=== PATIENT | female | born 1985 | race African-American/Black ===

== ENCOUNTER 2018-10-09 17:53 | Inpatient (IN) | payer OTHER ==
[2018-10-09] MEDS ORDERED: NACL 0.9% 3 ML SYG IV (19:30)
[2018-10-09] MEDS ORDERED: ACETAMINOPHEN 325 MG TAB PO (19:30)
[2018-10-09 19:50] LABS: ADD MAN DIFF? NO
[2018-10-09 19:52] LABS: BASOPHILS % 0.3 % (0.0-2.0); EOSINOPHILS # 0.1 10^3/ul (0.0-0.5); EOSINOPHILS % 0.8 % (0.0-7.0); HEMATOCRIT 38.1 % (37.0-47.0); HEMOGLOBIN 12.1 g/dl (12.0-16.0); LYMPHOCYTES # 2.3 10^3/ul (0.8-2.9); LYMPHOCYTES % 25.3 % (15.0-51.0); MEAN CORPUSCULAR HEMOGLOBIN 27.7 pg (29.0-33.0); MEAN CORPUSCULAR HGB CONC 31.8 g/dl (32.0-37.0); MEAN CORPUSCULAR VOLUME 87.2 fl (82.0-101.0); MEAN PLATELET VOLUME 10.2 fl (7.4-10.4); MONOCYTE # 0.6 10^3/ul (0.3-0.9); MONOCYTES % 6.3 % (0.0-11.0); PLATELET COUNT 190 10^3/UL (140-415); RED BLOOD COUNT 4.37 10^6/ul (4.20-5.40); RED CELL DISTRIBUTION WIDTH 13.3 % (11.5-14.5)
[2018-10-09 19:52] LABS: WHITE BLOOD COUNT 8.9 10^3/ul (4.8-10.8)
[2018-10-09 20:00] LABS: HEMOGLOBIN A1C 5.3 % (0-5.9)
[2018-10-09 20:09] LABS: INR 1.01; PROTIME 13.4 Sec (11.9-14.9)
[2018-10-09 20:10] LABS: ALBUMIN 3.9 g/dl (3.3-4.9); ALBUMIN/GLOBULIN RATIO 1.25; ALKALINE PHOSPHATASE 46 IU/L (42-121); ANION GAP 8 (5-13); ASPARTATE AMINO TRANSFERASE 14 IU/L (15-46); BILIRUBIN,INDIRECT 0.1 mg/dl (0-1.1); BILIRUBIN,TOTAL 0.1 mg/dl (0.2-1.3); BLOOD UREA NITROGEN 8 mg/dl (7-20); CALCIUM 9.3 mg/dl (8.4-10.2); CARBON DIOXIDE 23 mmol/L (21-31); CHLORIDE 107 mmol/L (97-110); CREATININE 1.07 mg/dl (0.44-1.00); Estimated GFR > 60 mL/min (>60); GLUCOSE 143 mg/dl (70-220); POTASSIUM 3.8 mmol/L (3.5-5.1); SODIUM 138 mmol/L (135-144)
[2018-10-09 20:11] LABS: PARTIAL THROMBOPLASTIN TIME 25.8 Sec (23.0-35.0)
[2018-10-09 20:12] LABS: ALANINE AMINOTRANSFERASE < 6 IU/L (13-69)
[2018-10-09] MEDS: PIPER-TAZO 3.375 GM IV (PMX) 100 ML IVPB (20:42)
[2018-10-09 21:03] LABS: THYROID STIMULATING HORMONE 0.739 MIU/L (0.465-4.680)
[2018-10-10] MEDS: PIPER-TAZO 3.375 GM IV (PMX) 100 ML IVPB ×4 (00:59→17:53)
[2018-10-10] MEDS: IBUPROFEN 600 MG TAB PO (09:11)
[2018-10-10] MEDS: ENOXAPARIN 40 MG/0.4 ML SYG SC (09:12)
[2018-10-10] MEDS: traMADol 50 MG TAB PO (14:26)
[2018-10-11] MEDS: PIPER-TAZO 3.375 GM IV (PMX) 100 ML IVPB ×4 (00:33→18:32)
[2018-10-11 07:09] LABS: ANION GAP 11 (5-13); BLOOD UREA NITROGEN 11 mg/dl (7-20); CALCIUM 8.9 mg/dl (8.4-10.2); CARBON DIOXIDE 23 mmol/L (21-31); CHLORIDE 105 mmol/L (97-110); Estimated GFR > 60 mL/min (>60); GLUCOSE 101 mg/dl (70-220); POTASSIUM 4.2 mmol/L (3.5-5.1); SODIUM 139 mmol/L (135-144)
[2018-10-11] MEDS: traMADol 50 MG TAB PO (09:16)
[2018-10-11] MEDS: ENOXAPARIN 40 MG/0.4 ML SYG SC (09:18)
[2018-10-11] MEDS: HYDROCODONE/APAP (5/325) TAB PO ×3 (12:32→22:35)
[2018-10-11] MEDS: ONDANSETRON 4 MG INJ IV (20:57)
[2018-10-12] MEDS: PIPER-TAZO 3.375 GM IV (PMX) 100 ML IVPB ×4 (00:05→20:24)
[2018-10-12] MEDS: ENOXAPARIN 40 MG/0.4 ML SYG SC (07:48)
[2018-10-12] MEDS: morphine 2 MG INJ IV ×2 (12:39→20:24)
[2018-10-12] MEDS ORDERED: LIDOCAINE 2% (SDV) 5 ML INJ (17:17)
[2018-10-12] MEDS ORDERED: PROPOFOL 0 ML (17:17)
[2018-10-12] MEDS ORDERED: PROPOFOL 100 ML (17:18)
[2018-10-12] MEDS ORDERED: DEXAMETHASONE 4 MG/ML 5 ML INJ (17:42)
[2018-10-12] MEDS ORDERED: ONDANSETRON 4 MG INJ (17:43)
[2018-10-12] MEDS: BUPIVACAINE 0.25% (MPF) 30 ML INJ (17:46)
[2018-10-12] MEDS: LIDOCAINE 1% (MPF) 30 ML INJ (17:46)
[2018-10-12] MEDS: POLYMYXIN/BACITRACIN 1L IRRIG (17:49)
[2018-10-12] MEDS ORDERED: MEPERIDINE 25 MG INJ IV (18:30)
[2018-10-12] MEDS ORDERED: DIPHENHYDRAMINE 50 MG INJ IV (18:30)
[2018-10-12] MEDS ORDERED: OXYCODONE/ACETAMINOPHEN (5/325) TAB PO ×2 (18:30)
[2018-10-12] MEDS ORDERED: MIDAZOLAM 1 MG/ML 2 ML INJ IV (18:30)
[2018-10-12] MEDS ORDERED: hydrALAzine 20 MG INJ IV (18:30)
[2018-10-12] MEDS ORDERED: ALBUTEROL 0.083% (NEB) 2.5 MG/3 ML AMP HHN (18:30)
[2018-10-12] MEDS ORDERED: HYDROmorphONE 1 MG/5 ML IV SYRINGE IV (18:30)
[2018-10-12] MEDS ORDERED: LABETALOL HCL 20MG INJ IV (18:30)
[2018-10-12] MEDS ORDERED: EPHEDrine SULFATE 50 MG/5 ML SYG IV (18:30)
[2018-10-12] MEDS ORDERED: METOCLOPRAMIDE 10 MG INJ IV (18:30)
[2018-10-12] MEDS ORDERED: FENTAnyl 50 MCG/ML VIAL IV ×3 (18:30)
[2018-10-12] MEDS: ONDANSETRON 4 MG INJ IV ×2 (18:44→22:30)
[2018-10-12] MEDS: HYDROmorphONE 1 MG/5 ML IV SYRINGE IV ×2 (18:44→19:00)
[2018-10-12] MEDS: HYDROmorphONE 1 MG/ML SYG IV (23:18)
[2018-10-13] MEDS: PIPER-TAZO 3.375 GM IV (PMX) 100 ML IVPB ×4 (00:11→17:13)
[2018-10-13] MEDS: HYDROmorphONE 1 MG/ML SYG IV ×5 (03:35→20:42)
[2018-10-13 05:22] LABS: ADD MAN DIFF? NO
[2018-10-13 05:35] LABS: BASOPHILS % 0.2 % (0.0-2.0); HEMATOCRIT 40.6 % (37.0-47.0); HEMOGLOBIN 13.1 g/dl (12.0-16.0); LYMPHOCYTES # 0.8 10^3/ul (0.8-2.9); LYMPHOCYTES % 8.1 % (15.0-51.0); MEAN CORPUSCULAR HEMOGLOBIN 27.9 pg (29.0-33.0); MEAN CORPUSCULAR HGB CONC 32.3 g/dl (32.0-37.0); MEAN CORPUSCULAR VOLUME 86.4 fl (82.0-101.0); MEAN PLATELET VOLUME 10.4 fl (7.4-10.4); MONOCYTE # 0.2 10^3/ul (0.3-0.9); MONOCYTES % 2.2 % (0.0-11.0); NEUTROPHIL # 8.3 10^3/ul (1.6-7.5); NEUTROPHILS % 89.2 % (39.0-77.0); PLATELET COUNT 228 10^3/UL (140-415)
[2018-10-13 05:35] LABS: WHITE BLOOD COUNT 9.3 10^3/ul (4.8-10.8)
[2018-10-13 06:11] LABS: PHOSPHORUS 3.3 mg/dl (2.5-4.9)
[2018-10-13 06:14] LABS: ANION GAP 9 (5-13); BLOOD UREA NITROGEN 9 mg/dl (7-20); CALCIUM 9.7 mg/dl (8.4-10.2); CARBON DIOXIDE 25 mmol/L (21-31); CHLORIDE 107 mmol/L (97-110); CREATININE 0.86 mg/dl (0.44-1.00); Estimated GFR > 60 mL/min (>60); GLUCOSE 169 mg/dl (70-220); POTASSIUM 4.2 mmol/L (3.5-5.1); SODIUM 141 mmol/L (135-144)
[2018-10-13] MEDS: ONDANSETRON 4 MG INJ IV ×2 (07:44→11:49)
[2018-10-13] MEDS: ENOXAPARIN 40 MG/0.4 ML SYG SC (08:42)
[2018-10-13] MEDS: IBUPROFEN 600 MG TAB PO (14:59)
[2018-10-13] MEDS ORDERED: TRIMETHOBENZAMIDE 100 MG/ML VIAL IM (15:30)
[2018-10-13] MEDS: ONDANSETRON INJ 8 MG in SOD CHLORIDE 0.9% 50 ML IV ×2 (16:11→20:42)
[2018-10-13] MEDS ORDERED: HYDROmorphONE 1 MG/ML SYG IV (17:30)
[2018-10-13] MEDS ORDERED: ONDANSETRON 4 MG INJ IV (18:00)
[2018-10-14] MEDS: PIPER-TAZO 3.375 GM IV (PMX) 100 ML IVPB ×5 (00:10→23:29)
[2018-10-14 05:56] LABS: ADD MAN DIFF? NO
[2018-10-14 06:09] LABS: BASOPHILS % 0.3 % (0.0-2.0); EOSINOPHILS % 0.2 % (0.0-7.0); HEMATOCRIT 38.4 % (37.0-47.0); HEMOGLOBIN 12.3 g/dl (12.0-16.0); LYMPHOCYTES % 23.2 % (15.0-51.0); MEAN CORPUSCULAR HEMOGLOBIN 28.2 pg (29.0-33.0); MEAN CORPUSCULAR VOLUME 88.1 fl (82.0-101.0); MEAN PLATELET VOLUME 10.4 fl (7.4-10.4); MONOCYTE # 0.5 10^3/ul (0.3-0.9); MONOCYTES % 4.2 % (0.0-11.0); NEUTROPHIL # 9.2 10^3/ul (1.6-7.5); NEUTROPHILS % 71.8 % (39.0-77.0); PLATELET COUNT 206 10^3/UL (140-415); RED BLOOD COUNT 4.36 10^6/ul (4.20-5.40); RED CELL DISTRIBUTION WIDTH 13.1 % (11.5-14.5)
[2018-10-14 06:09] LABS: WHITE BLOOD COUNT 12.8 10^3/ul (4.8-10.8)
[2018-10-14 06:44] LABS: PHOSPHORUS 4.1 mg/dl (2.5-4.9)
[2018-10-14 06:50] LABS: ANION GAP 8 (5-13); BLOOD UREA NITROGEN 9 mg/dl (7-20); CALCIUM 9.1 mg/dl (8.4-10.2); CARBON DIOXIDE 25 mmol/L (21-31); CHLORIDE 107 mmol/L (97-110); CREATININE 0.94 mg/dl (0.44-1.00); Estimated GFR > 60 mL/min (>60); GLUCOSE 103 mg/dl (70-220); POTASSIUM 4.1 mmol/L (3.5-5.1); SODIUM 140 mmol/L (135-144)
[2018-10-14] MEDS: ONDANSETRON INJ 8 MG in SOD CHLORIDE 0.9% 50 ML IV ×3 (08:03→20:23)
[2018-10-14] MEDS: HYDROmorphONE 4 MG TAB PO ×2 (08:04→20:23)
[2018-10-14] MEDS: ENOXAPARIN 40 MG/0.4 ML SYG SC (09:39)
[2018-10-14] MEDS: HYDROmorphONE 1 MG/ML SYG IV (12:06)
[2018-10-14] MEDS ORDERED: MAGNESIUM HYDROXIDE 30ML CUP PO (16:00)
[2018-10-14] MEDS ORDERED: METOCLOPRAMIDE 10 MG INJ IV (17:30)
[2018-10-15] MEDS: ONDANSETRON INJ 8 MG in SOD CHLORIDE 0.9% 50 ML IV ×3 (01:14→14:40)
[2018-10-15] MEDS: HYDROmorphONE 4 MG TAB PO ×3 (01:14→14:40)
[2018-10-15] MEDS: PIPER-TAZO 3.375 GM IV (PMX) 100 ML IVPB ×3 (05:29→18:00)
[2018-10-15 06:06] LABS: ADD MAN DIFF? NO
[2018-10-15 06:16] LABS: BASOPHILS % 0.4 % (0.0-2.0); EOSINOPHILS % 0.4 % (0.0-7.0); HEMATOCRIT 37.6 % (37.0-47.0); HEMOGLOBIN 11.6 g/dl (12.0-16.0); LYMPHOCYTES # 3.2 10^3/ul (0.8-2.9); LYMPHOCYTES % 31.7 % (15.0-51.0); MEAN CORPUSCULAR HEMOGLOBIN 27.6 pg (29.0-33.0); MEAN CORPUSCULAR HGB CONC 30.9 g/dl (32.0-37.0); MEAN CORPUSCULAR VOLUME 89.3 fl (82.0-101.0); MEAN PLATELET VOLUME 10.3 fl (7.4-10.4); MONOCYTE # 0.5 10^3/ul (0.3-0.9); NEUTROPHIL # 6.2 10^3/ul (1.6-7.5); NEUTROPHILS % 62.3 % (39.0-77.0); PLATELET COUNT 205 10^3/UL (140-415); RED BLOOD COUNT 4.21 10^6/ul (4.20-5.40); RED CELL DISTRIBUTION WIDTH 13.4 % (11.5-14.5)
[2018-10-15 06:37] LABS: MAGNESIUM 1.9 mg/dl (1.7-2.5)
[2018-10-15 06:37] LABS: PHOSPHORUS 4.3 mg/dl (2.5-4.9)
[2018-10-15 06:43] LABS: ANION GAP 6 (5-13); BLOOD UREA NITROGEN 9 mg/dl (7-20); CALCIUM 8.5 mg/dl (8.4-10.2); CARBON DIOXIDE 28 mmol/L (21-31); CHLORIDE 107 mmol/L (97-110); CREATININE 0.98 mg/dl (0.44-1.00); Estimated GFR > 60 mL/min (>60); GLUCOSE 98 mg/dl (70-220); POTASSIUM 4.1 mmol/L (3.5-5.1); SODIUM 141 mmol/L (135-144)
[2018-10-15] MEDS: ENOXAPARIN 40 MG/0.4 ML SYG SC (09:39)
[2018-10-15] MEDS: HYDROCODONE/APAP (5/325) TAB PO (17:02)
== END 2018-10-15 19:15 | disposition home health service (06) | DRG 572 ==
LOC: PP2 17:53
PROC: 0JBN0ZZ Excision of Right Lower Leg Subcutaneous Tissue and Fascia, Open Approach (ICD-10-PCS; principal; 2018-10-12 16:00)
DX: L97.819 Non-pressure chronic ulcer of other part of right lower leg with unspecified severity (principal); E66.9 Obesity, unspecified; L97.219 Non-pressure chronic ulcer of right calf with unspecified severity; Z68.39 Body mass index [BMI] 39.0-39.9, adult; Z87.828 Personal history of other (healed) physical injury and trauma
CPT/HCPCS: 71046; 73590; 73718; 80048; 80053; 83036; 83735; 84100; 84443; 84703; 85025; 85610; 85730; 87040-91; 87070; 87102; 88304; 93005; 93922; 93971; 97161